=== PATIENT | female | born 1995 | race Two or more races ===

== ENCOUNTER → 2025-01-25 | Emergency (ER) | payer OTHER ==
[~2025-01-25] VITALS: Ht 157.5 cm; Wt 62.1 kg
[~2025-01-25] MED LIST: KETOROLAC TROMETHAMINE 60 MG VIAL IM ONE
== END | disposition home or self-care (01) ==
LOC: ER 09:37
DX: S52.041A Displaced fracture of coronoid process of right ulna, initial encounter for closed fracture (principal); W18.39XA Other fall on same level, initial encounter; Y93.41 Activity, dancing; Y92.89 Other specified places as the place of occurrence of the external cause